=== PATIENT | female | born 1980 | race Hispanic/Latino ===

== ENCOUNTER → 2025-05-14 | Outpatient (CLI) | payer BC ==
--- NOTE | 2025-05-14 12:09 | HMCIMG ---
COLON BARIUM W/WO KUB REASON: Encounter for screening for malignant neoplasm of colon. COMPARISON: None TECHNIQUE: Double contrast barium enema study was performed. FINDINGS: There is no obstruction to the retrograde passage of barium from rectum through cecum. No reflux into the terminal ileum is seen. No constricting lesion is seen. IMPRESSION: No obstruction. No constricting lesion.
== END | disposition home or self-care (01) ==
LOC: RAH 09:43
PROVIDERS: ATTEND Internal Medicine Gastroenterology
DX: Z12.11 Encounter for screening for malignant neoplasm of colon (principal)
CPT/HCPCS: 74270